=== PATIENT | male | born 1955 | race Caucasian/White ===

== ENCOUNTER 2018-08-01 00:10 | Emergency (ER) | payer OTHER ==
[~2018-08-01] VITALS: Ht 172.7 cm; Wt 59.9 kg
[~2018-08-01 00:10] MED LIST: ATA25 PO; DEXT5TAB10 PO; SERT100T PO
[2018-08-01 00:18] VITALS: BP 142/90
--- NOTE | 2018-08-01 00:19 | NUR ---
TO BED # 3 AMBULATORY, REPORT GIVEN TO MAURICIO WATKINS
[2018-08-01] MEDS ORDERED: TETRACAINE HCL/PF 0.5% OPTH 4 ML BTL OP ONE (00:45)
--- NOTE | 2018-08-01 00:56 | NUR ---
PT PRESENTS TO ED FOR EVALUATION OF FB IN BOTH EYES. PT STATED CONTACT LENS STUCK IN BITH EYES YESTERDAY, UNABLE TO GET THEM OUT. AAO X4, GCS 15, RESPIRATIONS EVEN AND UNLABORED. LT EYE REDNESS WITH DISCHARGE, RT EYE MILD REDNESS, STATED PAIN 5/10, NO BLURRED VISION. VSS, DR. ZEPEDA MADE AWARE OF PT STATUS. WILL CONTINUE TO MONITOR
--- NOTE | 2018-08-01 01:35 | NUR ---
ATTEMTED TO REMOVE FB FROM BOTH EYES
[2018-08-01] MEDS ORDERED: ERYTHROMYCIN 0.5% OPTH OINT 1 GM TUBE OP SCH ×2 (01:55→03:50)
[2018-08-01] MEDS ORDERED: TETRACAINE HCL/PF 0.5% OPTH 4 ML BTL ONE (02:06)
--- NOTE | 2018-08-01 02:15 | NUR ---
ATTEMTED TO REMOVE FB, FAILED TO REMOVE
[2018-08-01] MEDS ORDERED: ERYTHROMYCIN 0.5% OPTH OINT 1 GM TUBE ONE (02:20)
--- NOTE | 2018-08-01 02:30 | NUR ---
ADVICED PT TO SEE OPHTALMOLOGIST, PT VERBALIZED UNDERSTANDING.
--- NOTE | 2018-08-01 02:50 | NUR ---
Patient discharged with v/s stable. Written and verbal after care instructions given and explained. Patient alert, oriented and verbalized understanding of instructions. Ambulatory with steady gait. All questions addressed prior to discharge. ID band removed. Patient advised to follow up with PMD. Rx of NEOLPOLYDEX OPHTALMIC OINTMENT given. Patient educated on indication of medication including possible reaction and side effects. Opportunity to ask questions provided and answered.
[2018-08-01 02:59] VITALS: BP 130/91
== END 2018-08-01 02:50 | disposition home or self-care (01) ==
LOC: MED 00:10
DX: T15.92XA Foreign body on external eye, part unspecified, left eye, initial encounter (principal); T15.91XA Foreign body on external eye, part unspecified, right eye, initial encounter; Z79.899 Other long term (current) drug therapy; X58.XXXA Exposure to other specified factors, initial encounter; Y93.89 Activity, other specified; Y92.89 Other specified places as the place of occurrence of the external cause; Y99.8 Other external cause status
CPT/HCPCS: 65205; 99284

== ENCOUNTER 2018-10-20 16:16 | Emergency (ER) | payer OTHER ==
[~2018-10-20] VITALS: Ht 172.7 cm; Wt 61.3 kg
[2018-10-20 16:45] VITALS: BP 109/68
--- NOTE | 2018-10-20 16:52 | NUR ---
63 Y/O M SENT OVER BY PMD CORWIN SABA MD FOR OPEN/DRAINING SCROTAL ABSCESS/PAIN 03/18 FOR OVER 2 WKS. PT DENIES N/V/D; AAOX4, PERRL, WITH EVEN AND STEADY GAIT; LUNGS CLEAR BL, BREATHING UNLABORED; HR EVEN AND REGULAR, BL PERIPHERAL PULSES PRESENT; PT DENIES ANY FEVER, CP, SOB, OR COUGH AT THIS TIME; PT STATES 8/10 PAIN AT THIS TIME; VSS; PATIENT POSITIONED FOR COMFORT; HOB ELEVATED; BEDRAILS UP X2; BED DOWN. DENIES PAINFUL URINATION HX; ADHD -- RX; DEXADRINE, ZOLOFT, ATARAX, XANAX
[2018-10-20] MEDS ORDERED: CLINDAMYCIN 600 MG/4 ML VIAL IM ONE (17:20)
[2018-10-20] MEDS ORDERED: LIDOCAINE 2% 1000 MG/50 ML VIAL INJ ONE (17:30)
[2018-10-20 18:04] VITALS: BP 112/65
--- NOTE | 2018-10-20 18:05 | NUR ---
Patient discharged with v/s stable. Written and verbal after care instructions given and explained. Patient alert, oriented and verbalized understanding of instructions. Ambulatory with steady gait. All questions addressed prior to discharge. ID band removed. Patient advised to follow up with PMD. Rx of BACTROBAN, MOTRIN, CLINDAMYCIN given. Patient educated on indication of medication including possible reaction and side effects. Opportunity to ask questions provided and answered.
== END 2018-10-20 18:05 | disposition home or self-care (01) ==
LOC: MED 16:16
DX: N49.2 Inflammatory disorders of scrotum (principal); F41.9 Anxiety disorder, unspecified; Z22.322 Carrier or suspected carrier of Methicillin resistant Staphylococcus aureus
CPT/HCPCS: 10060; 87070; 87075; 87186; 87205; 90471; 90715; 96372; 99283; J2001; J3490

== ENCOUNTER 2018-10-24 16:08 | Emergency (ER) | payer OTHER ==
[~2018-10-24] VITALS: Ht 172.7 cm; Wt 63.0 kg
[2018-10-24 16:25] VITALS: BP 116/73
--- NOTE | 2018-10-24 17:12 | NUR ---
Bib self with c/o recheck for scrotal abscess with pain and MRSA infection seen on 10/20/2018. aREA APPEARS RED IN COLOR, NO PACKING NOTED. PATIENT STATES PAIN OF 8/10 AT THIS TIME; VSS; PATIENT POSITIONED FOR COMFORT; HOB ELEVATED; BEDRAILS UP X2; BED DOWN. ER MD MADE AWARE OF PT STATUS.
--- NOTE | 2018-10-24 17:15 | NUR ---
ABCSESS AREA CLEANED, BANDAGE APPLIED. PT TOLERATED WELL.
[2018-10-24] MEDS ORDERED: NEOMYCIN/POLYMYXIN/BACITRACIN 0.9 GM/1 PKT TP ONE (17:28)
[2018-10-24 17:29] VITALS: BP 116/73
--- NOTE | 2018-10-24 17:30 | NUR ---
Patient discharged with v/s stable. Written and verbal after care instructions given and explained. Patient verbalized understanding. Ambulatory with steady gait. All questions addressed prior to discharge. Advised to follow up with PMD.
== END 2018-10-24 17:30 | disposition home or self-care (01) ==
LOC: MED 16:08
DX: Z48.01 Encounter for change or removal of surgical wound dressing (principal)
CPT/HCPCS: 99283

== ENCOUNTER 2022-03-19 13:21 | Emergency (ER) | payer MEDICARE, OTHER ==
[~2022-03-19] VITALS: Ht 172.7 cm; Wt 55.3 kg
[2022-03-19 13:34] VITALS: BP 126/86
[2022-03-19] MEDS ORDERED: [UNRECOGNIZED DRUG - CODE] PO (14:38)
[2022-03-19] MEDS ORDERED: CARB15DR61 OT (14:38)
[2022-03-19 15:10] VITALS: BP 113/69
== END 2022-03-19 15:10 | disposition home or self-care (01) ==
LOC: MED 13:21
DX: B37.0 Candidal stomatitis (principal); H61.21 Impacted cerumen, right ear; J45.909 Unspecified asthma, uncomplicated; R00.0 Tachycardia, unspecified; M19.90 Unspecified osteoarthritis, unspecified site
CPT/HCPCS: 99283

== ENCOUNTER 2023-10-29 20:37 | Emergency (ER) | payer MEDICARE, OTHER ==
[~2023-10-29] VITALS: Ht 177.8 cm; Wt 63.5 kg
[~2023-10-29 20:37] MED LIST changes: +CARB15DR61 OT; +[UNRECOGNIZED DRUG - CODE] PO
[2023-10-29 20:44] VITALS: BP 138/85; PULSE 56; RESP 16; TEMP 98.1; O2SAT 95
[2023-10-29] MEDS: ONDANSETRON 4 MG/2 ML VIAL IVP ONE (21:41)
[2023-10-29] MEDS: MORPHINE SULFATE 4 MG/ML SYR IVP ONE (21:42)
[2023-10-29] MEDS: NACL 0.9% 1,000 ML IV ONE (21:42)
[2023-10-29 21:46] LABS: BASOPHILS # (AUTO) 0.1 K/uL (0.00-0.22); BASOPHILS % (AUTO) 0.4 % (0.0-2.0); EOSINOPHILS # (AUTO) 0.1 K/uL (0-0.4); EOSINOPHILS % (AUTO) 0.7 % (0.0-4.0); HEMATOCRIT 46.2 % (36-52); HEMOGLOBIN 15.5 g/dL (12.0-18.0); LYMPHOCYTES # (AUTO) 1.3 K/uL (2.0-11.5); LYMPHOCYTES % (AUTO) 8.4 % (20.5-51.1); MEAN CORPUSCULAR HEMOGLOBIN 32 pg (27-31); MEAN CORPUSCULAR HGB CONC 33 g/dL (33-37); MEAN CORPUSCULAR VOLUME 96.9 fL (80-94); MONOCYTES # (AUTO) 0.9 K/uL (0.8-1.0); MONOCYTES % (AUTO) 5.9 % (1.7-9.3); NEUTROPHILS % (AUTO) 84.6 % (42.2-75.2); PLATELET COUNT (AUTO) 273 K/uL (140-450); RED BLOOD CELL COUNT(AUTO) 4.78 MIL/uL (4.20-6.10); RED CELL DISTRIBUTION WIDTH 13.6 % (11.6-13.7); WHITE BLOOD COUNT (AUTO) 15.4 K/uL (4.8-10.8)
[2023-10-29 21:56] LABS: CALCIUM 8.7 mg/dL (8.5-10.1); CARBON DIOXIDE 30.4 mmol/L (21-32); CREATININE 1.6 mg/dL (0.6-1.3); POTASSIUM 4.4 mmol/L (3.5-5.1)
[2023-10-29 21:58] LABS: INR 0.94 (0.8-1.2); PARTIAL THROMBOPLASTIN TIME 24.1 secs (22-35.6); PROTHROMBIN TIME 9.9 secs (10.8-13.4)
[2023-10-29 22:09] LABS: ALANINE AMINOTRANSFERASE 65 U/L (12-78); ALBUMIN 3.4 g/dL (3.4-5.0); ALKALINE PHOSPHATASE 65 U/L (50-136); ASPARTATE AMINOTRANSFERASE 68 U/L (15-37); BILIRUBIN,DIRECT 0.1 mg/dL (0.0-0.3); TOTAL BILIRUBIN 0.5 mg/dL (0.0-1.0); TOTAL PROTEIN, SERUM 7.2 g/dL (6.4-8.2)
[2023-10-29] MEDS ORDERED: CHOL400T12 PO (22:50)
[2023-10-29] MEDS ORDERED: HYDR-5191 PO (22:50)
[2023-10-30] MEDS: fentaNYL citrate 0.05 MG/ML VIAL IVP ONE (00:08)
[2023-10-30] MEDS ORDERED: AMPICILLIN/SULBACTAM 1.5 GM VIAL ONE (00:39)
[2023-10-30] MEDS: AMPICILLIN/SULBACTAM 1.5 GM in NACL 0.9% 50 ML IV ONE (00:50)
[2023-10-30] MEDS ORDERED: ASPIRIN 325 MG TAB ONE (01:03)
[2023-10-30] MEDS ORDERED: CRUSHER, PILL MC ONE (01:07)
[2023-10-30] MEDS: ASPIRIN 325 MG TAB PO ONE (01:10)
[2023-10-30 05:22] VITALS: BP 133/86; PULSE 54; RESP 16; TEMP 98.1; O2SAT 91
== END 2023-10-30 05:22 | disposition short-term general hospital (02) ==
LOC: MED 20:37
DX: S02.69XA Fracture of mandible of other specified site, initial encounter for closed fracture (principal); S09.90XA Unspecified injury of head, initial encounter; N28.9 Disorder of kidney and ureter, unspecified; I21.4 Non-ST elevation (NSTEMI) myocardial infarction; R55 Syncope and collapse; J45.909 Unspecified asthma, uncomplicated; I25.10 Atherosclerotic heart disease of native coronary artery without angina pectoris; F17.210 Nicotine dependence, cigarettes, uncomplicated; Z79.899 Other long term (current) drug therapy; Z91.010 Allergy to peanuts; X58.XXXA Exposure to other specified factors, initial encounter; Y93.89 Activity, other specified; Y92.89 Other specified places as the place of occurrence of the external cause; Y99.8 Other external cause status
CPT/HCPCS: 36415; 70450; 70486; 71045; 71275; 72125; 80048; 80076; 83735; 83880; 84484; 85025; 85610; 85730; 93005; 96361; 96365; 96375; 99291; J0295; J1644; J2270; J2405; J3010; J7030; Q9967

== ENCOUNTER 2024-04-13 06:33 | Emergency (ER) | payer MEDICARE, OTHER ==
[~2024-04-13] VITALS: Ht 172.7 cm; Wt 59.9 kg
[~2024-04-13 06:33] MED LIST changes: +CHOL400T12 PO; +HYDR-5071 PO
[2024-04-13 06:35] VITALS: BP 145/105; PULSE 107; RESP 20; TEMP 97.6; O2SAT 97
[2024-04-13 07:19] LABS: BASOPHILS % (AUTO) 0.2 % (0.0-2.0); EOSINOPHILS % (AUTO) 0.1 % (0.0-4.0); HEMATOCRIT 48.8 % (36-52); HEMOGLOBIN 16.6 g/dL (12.0-18.0); LYMPHOCYTES # (AUTO) 1.3 K/uL (2.0-11.5); LYMPHOCYTES % (AUTO) 13.9 % (20.5-51.1); MEAN CORPUSCULAR HEMOGLOBIN 33 pg (27-31); MEAN CORPUSCULAR HGB CONC 34 g/dL (33-37); MEAN CORPUSCULAR VOLUME 96.8 fL (80-94); MONOCYTES # (AUTO) 0.8 K/uL (0.8-1.0); MONOCYTES % (AUTO) 8.3 % (1.7-9.3); NEUTROPHILS # (AUTO) 7.4 K/uL (1.8-7.7); NEUTROPHILS % (AUTO) 77.5 % (42.2-75.2); PLATELET COUNT (AUTO) 246 K/uL (140-450); RED BLOOD CELL COUNT(AUTO) 5.04 MIL/uL (4.20-6.10); RED CELL DISTRIBUTION WIDTH 14.7 % (11.6-13.7); WHITE BLOOD COUNT (AUTO) 9.5 K/uL (4.8-10.8)
[2024-04-13] MEDS: FAMOTIDINE 20 MG/2 ML VIAL IVP ONE (07:21)
[2024-04-13] MEDS: ONDANSETRON 4 MG/2 ML VIAL IVP ONE (07:21)
[2024-04-13] MEDS: KETOROLAC 30 MG/ML VIAL IVP ONE (07:23)
[2024-04-13 07:44] LABS: ALANINE AMINOTRANSFERASE 210 U/L (12-78); ALBUMIN 3.2 g/dL (3.4-5.0); ALKALINE PHOSPHATASE 91 U/L (50-136); ASPARTATE AMINOTRANSFERASE 63 U/L (15-37); BILIRUBIN,DIRECT 0.3 mg/dL (0.0-0.3); LIPASE 62 U/L (16-77); TOTAL BILIRUBIN 1.3 mg/dL (0.0-1.0); TOTAL PROTEIN, SERUM 6.1 g/dL (6.4-8.2)
[2024-04-13 08:18] LABS: ANION GAP 12.1 (8-16); CALCIUM 8.7 mg/dL (8.5-10.1); CARBON DIOXIDE 28.9 mmol/L (21-32); CREATININE 1.5 mg/dL (0.6-1.3)
[2024-04-13] MEDS: NACL 0.9% 1,000 ML IV ONE (08:42)
[2024-04-13] MEDS ORDERED: FAMO-92 PO (09:00)
[2024-04-13] MEDS ORDERED: ONDA-188 PO (09:00)
[2024-04-13 10:02] VITALS: O2SAT 96
[2024-04-13 10:07] VITALS: BP 141/98; PULSE 85; RESP 12; TEMP 98.2; O2SAT 95
== END 2024-04-13 10:06 | disposition home or self-care (01) ==
LOC: MED 06:33
DX: F10.10 Alcohol abuse, uncomplicated (principal); F17.210 Nicotine dependence, cigarettes, uncomplicated; J45.909 Unspecified asthma, uncomplicated; Z98.890 Other specified postprocedural states; Z79.1 Long term (current) use of non-steroidal anti-inflammatories (NSAID); Z79.899 Other long term (current) drug therapy; Y90.9 Presence of alcohol in blood, level not specified
CPT/HCPCS: 36415; 71045; 80048; 80076; 83690; 83880; 84484; 85025; 93005; 96361; 96374; 96375; 99285; J1885; J2405; J3490; J7030